=== PATIENT | female | born 1935 | race Caucasian/White ===

== ENCOUNTER 2018-04-09 10:39 | Emergency (ER) | payer MEDICARE, OTHER ==
[2018-04-09] MEDS: Aspirin 81 MG Tab.Chew PO ONE (11:55)
[2018-04-09] MEDS: Aspirin 81 MG Tab.EC PO ONE (12:02)
--- NOTE | 2018-04-09 12:11 | EDM.PDOC ---
ED HPI GENERAL MEDICAL PROBLEM - General Stated Complaint: HEAVY FEELING CHEST Time Seen by Provider: 04/09/18 10:39 Source of Information: Reports: Patient, Family History Limitations: Reports: No Limitations - History of Present Illness INITIAL COMMENTS - FREE TEXT/NARRATIVE: 82 years old w f came to the ed with her friend due to chest pressure 3/10. 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 Pt has h/o elevated cholesterol for which she take Lipitor. 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 Her last EST was many years ago(?). No angora was performed as of yet. No diaphoresis, no sweating, no N/V/D or dizziness or any other acute medical issues at this time. ECG was doen at the clinic, [employer] which showed a NST without acute ST/T wave changes. BP 136/65 pulse 52 RR 19 Pulse ox 99% on RA temp 36.7 Onset Date: 04/08/18 Onset Time: 19:00 Duration: Hour(s):, Intermittent Location: Reports: Chest Quality: Reports: Pressure Severity: Mild Improves with: Reports: None Worsens with: Reports: None Context: Reports: Other (H/O IA) Associated Symptoms: Reports: No Other Symptoms Treatments [employer]: Reports: Aspirin (81 mg) chest Pain Score (Numeric/FACES): 3 - Related Data Allergies Allergy/AdvReac Type Severity Reaction Status Date / Time No Known Allergies Allergy Verified 04/09/18 11:47 Home Meds: Home Meds Alendronate Sodium [Fosamax] 70 mg PO WEEKLY 04/09/18 [History] Aspirin [Ecotrin] 81 mg PO DAILY 04/09/18 [History] Calcium Carbonate/Vitamin D3 [Caltrate 600 Plus D3 Tablet] 3 ea PO DAILY [History] Naproxen Sodium [Aleve] 220 mg PO BID PRN 04/09/18 [History] Nitroglycerin [Nitrostat] 0.4 mg SL ASDIRECTED 04/09/18 [History] [place]-3S/DHA/Epa/Fish Oil [[place]-3 Fish Oil 1,000 mg Sfgl] 1 ea PO DAILY [History] PARoxetine [Paxil] 5 mg PO DAILY 04/09/18 [History] atorvaSTATin [Lipitor] 20 mg PO DAILY 04/09/18 [History] ED ROS GENERAL - Review of Systems Review Of Systems: See Below Constitutional: Reports: No Symptoms HEENT: Reports: No Symptoms Respiratory: Reports: No Symptoms Cardiovascular: Reports: Chest Pain Endocrine: Reports: No Symptoms GI/Abdominal: Reports: No Symptoms : Reports: No Symptoms Musculoskeletal: Reports: No Symptoms Skin: Reports: No Symptoms Neurological: Reports: No Symptoms Psychiatric: Reports: No Symptoms Hematologic/Lymphatic: Reports: No Symptoms Immunologic: Reports: No Symptoms ED EXAM, GENERAL - Physical Exam Exam: See Below Exam Limited By: No Limitations General Appearance: Alert, WD/WN, Mild Distress Eye Exam: Bilateral Eye: Normal Inspection Ears: Normal External Exam, Normal Canal Ear Exam: Bilateral Ear: Auricle Normal Nose: Normal Inspection, Normal Mucosa, No Blood Throat/Mouth: Normal Inspection, Normal Lips, Normal Oropharynx, Normal Voice, No Airway Compromise Head: Atraumatic, Normocephalic Neck: Normal Inspection, Supple, Non-Tender, Full Range of Motion Respiratory/Chest: No Respiratory Distress, Lungs Clear, Normal Breath Sounds, No Accessory Muscle Use, Chest Non-Tender Cardiovascular: Normal Peripheral Pulses, Regular Rate, Rhythm, No Edema, No Gallop, No JVD, No Murmur, No Rub GI/Abdominal: Normal Bowel Sounds (Female) Exam: Deferred Rectal (Female) Exam: Deferred Back Exam: Normal Inspection, Full Range of Motion Extremities: Normal Inspection, Normal Range of Motion, Non-Tender, No Pedal Edema, Normal Capillary Refill Neurological: Alert, Oriented, CN II-XII Intact, Normal Cognition, Normal Gait, Normal Reflexes, No Motor/Sensory Deficits Psychiatric: Normal Affect, Normal Mood Skin Exam: Warm, Dry, Intact, Normal Color, No Rash Lymphatic: No Adenopathy EKG INTERPRETATION EKG Date: 04/09/18 Time: 08:30 Rhythm: NSR Rate (Beats/Min): 65 [place]: Normal P-Wave: Present QRS: Normal ST-T: Normal QT: Normal Comparison: NA - No Prior EKG EKG Interpretation Comments: This EKG was taken at the Clinic at 8.30 am today Course - Vital Signs Text/Narrative:: 82 years old w f came to the ed with her friend due to chest pressure 3/10. 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 Pt has h/o elevated cholesterol for which she take Lipitor. 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 Her last EST was many years ago(?). No angora was performed as of yet. No diaphoresis, no sweating, no N/V/D or dizziness or any other acute medical issues at this time. ECG was doen at the clinic, [employer] which showed a NST without acute ST/T wave changes. BP 136/65 pulse 52 RR 19 Pulse ox 99% on RA temp 36.7 PE: WNWD W F with Chest pressure 3/10 Imaging: CXR: NAD Labs: CBC, BMP Troponin were all WNL Impression: Atypical chest pain Tx: ASA Reexam: Pt was entirely CP free in her usual [facility] 12.[address] Marina PA: Will order an EST as out patient Plan: D/C with instructions Last Recorded V/S: Last Vital Signs Temp 36.6 C 04/09/18 12:49 Pulse 57 L 04/09/18 10:50 Resp 18 04/09/18 12:49 BP 122/44 L 04/09/18 12:49 Pulse Ox 95 04/09/18 12:49 - Orders/Labs/Meds Orders: Active Orders 24 hr Category Date Time Status EKG Documentation Completion [RC] ASDIRECTED Care 04/09/18 11:02 Inactive EKG 12 Lead [EK] Routine Ther 04/09/18 11:02 Stop Req Labs: Laboratory Tests 04/09/18 04/09/18 04/09/18 Range/Units 11:20 11:20 11:20 WBC 5.8 (4.5-12.0) X10-3/uL RBC 3.68 (3.23-5.20) x10(6)uL Hgb 11.7 (11.5-15.5) g/dL Hct 33.8 (30.0-51.3) % MCV 91.8 (80-96) fL MCH 31.7 (27.7-33.6) pg MCHC 34.5 (32.2-35.4) g/dL RDW 12.8 (11.5-15.5) % Plt Count 148 (125-369) X10(3)uL MPV 8.4 (7.4-10.4) fL Neut % (Auto) 63.0 (46-82) % Lymph % (Auto) 25.1 (13-37) % Centre % (Auto) 10.1 (4-12) % Eos % (Auto) 1 (1.0-5.0) % Baso % (Auto) 1 (0-2) % Neut # (Auto) 3.6 (1.6-8.3) # Lymph # (Auto) 1.5 (0.6-5.0) # Centre # (Auto) 0.6 (0.0-1.3) # Eos # (Auto) 0.1 (0.0-0.8) # Baso # (Auto) 0.0 (0.0-0.2) # Sodium 139 (135-145) mmol/L Potassium 4.3 (3.5-5.3) mmol/L Chloride 104 (100-110) mmol/L Carbon Dioxide 29 (21-32) mmol/L BUN 18 (7-18) mg/dL Creatinine 0.9 (0.55-1.02) mg/dL Est Cr Clr Drug Dosing TNP Estimated GFR (MDRD) > 60 (>60) BUN/Creatinine Ratio 20.0 (9-20) Glucose 95 (80-116) mg/dL Calcium 8.5 L (8.6-10.2) mg/dL Troponin I < 0.017 L (<0.017-0.056) ng/mL Meds: Medications Discontinued Medications Generic Name Dose Route Start Last Admin Trade Name Freq PRN Reason Stop Dose Admin Aspirin 162 mg 04/09/18 11:03 04/09/18 12:02 Halfprin PO 04/09/18 11:04 162 mg ONETIME ONE Administration Aspirin 81 mg 04/09/18 11:03 04/09/18 11:55 Aspirin PO 04/09/18 11:04 81 mg ONETIME ONE Administration Departure - Departure Time of Disposition: 12:36 Disposition: Home, Self-Care 01 Condition: Good Clinical Impression: Atypical chest pain Instructions: Nonspecific Chest Pain, [id number], Angina Pectoris, Easy-to- Read Referrals: Steven Flores PA-C [Primary Care Provider] - Forms: ED Department Discharge Additional Instructions: CALL MELISSA FLORES AT [facility] TO VERIFY TIME FOR SET UP OF STRESS TEST. QUESTIONS: CALL [facility] [phone]. [facility] [phone] - My Orders Last 24 Hours: My Active Orders 04/09/18 11:02 EKG Documentation Completion [RC] ASDIRECTED EKG 12 Lead [EK] Routine - Assessment/Plan Last 24 Hours: My Active Orders 04/09/18 11:02 EKG Documentation Completion [RC] ASDIRECTED EKG 12 Lead [EK] Routine
--- NOTE | 2018-04-09 13:50 | CR ---
INDICATION: Chest pain. CHEST: An AP portable upright view of the chest was obtained 04/09/2018. No comparisons. The heart is enlarged in appearance but is emphasized by AP positioning. This examination is portable. The aorta is tortuous with calcification in the arch. Overlying EKG leads are noted. Lungs appear to be somewhat hyperaerated with interdigitation of the right hemidiaphragm leaf, suggesting the possibility of COPD - correlate clinically. An active infiltrate or effusion was not identified. IMPRESSION: No acute process. MTDD
== END 2018-04-09 13:02 | disposition home or self-care (01) ==
LOC: FB.ED 10:39
DX: R07.89 Other chest pain (principal); Z79.899 Other long term (current) drug therapy
CPT/HCPCS: 36415; 71045; 80048; 84484; 85025; 99285; A9270

== ENCOUNTER 2022-12-23 12:38 | Emergency (ER) | payer MEDICARE, OTHER ==
[2022-12-23] MEDS ORDERED: traMADol 50 MG Tab PO ONE ×2 (12:39→15:27)
[2022-12-23] MEDS ORDERED: Bacitracin Oint 1 GM U/D Packet TOP ONE (13:08)
[2022-12-23] MEDS ORDERED: Acetaminophen 325 MG Tab PO ONE (14:10)
[2022-12-23] MEDS ORDERED: Lidocaine 2% 10 ML Amp INJECT ONE ×2 (14:12→14:36)
[2022-12-23] MEDS: Lidocaine 2% 20 ML MDV INJECT ONE ×2 (14:38→16:05)
== END 2022-12-23 16:13 | disposition home or self-care (01) ==
LOC: FB.ED 12:38
DX: S62.512A Displaced fracture of proximal phalanx of left thumb, initial encounter for closed fracture (principal); S00.81XA Abrasion of other part of head, initial encounter; Z79.82 Long term (current) use of aspirin; W01.0XXA Fall on same level from slipping, tripping and stumbling without subsequent striking against object, initial encounter; Y93.01 Activity, walking, marching and hiking; Y92.22 Religious institution as the place of occurrence of the external cause
CPT/HCPCS: 70450; 72125; 73130-LT; 73140-FA; 93005; 99284; A9270-GY